=== PATIENT | male | born 1980 | race African-American/Black ===

== ENCOUNTER 2016-11-05 13:49 | Emergency (ER) | payer BC ==
[~2016-11-05] VITALS: Ht 188 cm; Wt 80.1 kg
[2016-11-05 13:54] VITALS: BP 117/82
[2016-11-05] MEDS ORDERED: LIDOCAINE 1%, 20ML ONE (14:12)
[2016-11-05] MEDS ORDERED: DIPH,PERTUSS(ACELL),TET VAC/PF 0.5 ML IM-VACC ONE ×2 (14:13→14:30)
[2016-11-05] MEDS ORDERED: LIDOCAINE 1%, 20ML INFIL ONE (14:30)
== END 2016-11-05 14:54 | disposition home or self-care (01) ==
LOC: ED 14:48
DX: S01.01XA Laceration without foreign body of scalp, initial encounter (principal); W22.8XXA Striking against or struck by other objects, initial encounter; Y93.89 Activity, other specified; Y92.89 Other specified places as the place of occurrence of the external cause; Y99.0 Civilian activity done for income or pay
CPT/HCPCS: 12001; 90471; 90715

== ENCOUNTER 2016-11-14 08:45 | Emergency (ER) | payer BC | END 2016-11-14 09:10 | disposition left against medical advice (07) | LOC: ED 09:00 | DX: Z48.02 Encounter for removal of sutures (principal); Z53.21 Procedure and treatment not carried out due to patient leaving prior to being seen by health care provider ==

== ENCOUNTER 2016-11-19 14:36 | Emergency (ER) | payer BC ==
[~2016-11-19] VITALS: Ht 188 cm; Wt 79.6 kg
[2016-11-19 14:37] VITALS: BP 112/71
== END 2016-11-19 15:01 | disposition home or self-care (01) ==
LOC: ED 14:56
DX: S01.01XD Laceration without foreign body of scalp, subsequent encounter (principal); X58.XXXD Exposure to other specified factors, subsequent encounter; Y92.89 Other specified places as the place of occurrence of the external cause; Y99.8 Other external cause status
CPT/HCPCS: 99281